=== PATIENT | female | born 1970 | race Two or more races ===

== ENCOUNTER 2017-10-23 17:38 | Emergency (ER) | payer SELFPAY ==
[~2017-10-23] VITALS: Ht 157.5 cm; Wt 59.0 kg
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
[2017-10-23 17:44] VITALS: BP 139/83
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
== END 2017-10-23 19:12 | disposition home or self-care (01) ==
LOC: ER 17:39
DX: S80.211A Abrasion, right knee, initial encounter (principal); S20.312A Abrasion of left front wall of thorax, initial encounter; V49.49XA Driver injured in collision with other motor vehicles in traffic accident, initial encounter; Y93.89 Activity, other specified; Y92.413 State road as the place of occurrence of the external cause; Y99.8 Other external cause status
CPT/HCPCS: 71045; 73564; 99284; A4606; Z7610